=== PATIENT | male | born 1940 | race Caucasian/White ===

== ENCOUNTER 2023-04-22 10:12 | Outpatient (CLI) | payer BC ==
[~2023-04-22 10:12] MED LIST: ATOR10TA87 PO; QUIN10TA PO
[2023-04-22 10:50] VITALS: PULSE 74; RESP 16; O2SAT 91
== END 2023-04-22 23:59 | disposition home or self-care (01) ==
LOC: RT 10:12
PROVIDERS: ATTEND Family Medicine
DX: R94.2 Abnormal results of pulmonary function studies (principal); R06.00 Dyspnea, unspecified; Z87.891 Personal history of nicotine dependence
CPT/HCPCS: 94060; 94760

== ENCOUNTER 2024-04-24 11:12 | Day surgery (SDC) | payer BC ==
[2024-04-20 11:17] LABS: BASOPHILS % (AUTO) 0.5 % (0-1); EOSINOPHILS # (AUTO) 0.2 X10'3 (0-0.9); EOSINOPHILS % (AUTO) 2.5 % (0-6); HEMATOCRIT 46.9 % (42.0-52.0); HEMOGLOBIN 15.8 g/dl (14.0-17.9); LYMPHOCYTES # (AUTO) 1.9 X10'3 (1.1-4.8); LYMPHOCYTES % (AUTO) 27.1 % (21-51); MEAN CORPUSCULAR HEMOGLOBIN 30.5 PG (27.0-31.0); MEAN CORPUSCULAR HGB CONC 33.7 g/dL (33.0-36.5); MEAN CORPUSCULAR VOLUME 90.6 FL (78-98); MEAN PLATELET VOLUME 8.4 FL (7.4-10.4); MONOCYTES # (AUTO) 0.8 X10'3 (0-0.9); MONOCYTES % (AUTO) 10.6 % (2-12); NEUTROPHILS # (AUTO) 4.2 X10'3 (1.8-7.7); NEUTROPHILS % (AUTO) 59.3 % (42-75); PLATELET COUNT 192 X10'3 (140-440); RED BLOOD COUNT 5.18 X10'6 (4.70-6.10); RED CELL DISTRIBUTION WIDTH 13.5 % (11.5-14.5); WHITE BLOOD COUNT 7.1 X10'3 (4.5-11.0)
[2024-04-20 11:18] LABS: APTT 34 SECONDS (22-32); INR 1.1 INR; PROTHROMBIN TIME 11.6 SECONDS (9.0-12.0)
[2024-04-20 11:27] LABS: ALBUMIN 3.5 G/DL (3.4-5.0); ANION GAP 10 (8-16); BLOOD UREA NITROGEN 17 MG/DL (7-18); BUN/CREATININE RATIO 16.8 (10.0-20.0); CALCIUM 9.3 MG/DL (8.5-10.1); CHLORIDE 106 MMOL/L (99-107); CHOL/HDL RATIO 2.8 (0.00-4.99); CHOLESTEROL 145 MG/DL (0-200); CREATININE 1.01 MG/DL (0.60-1.10); GLUCOSE 113 MG/DL (70-104); HDL CHOLESTEROL 51 MG/DL (35-60); LDL CHOLESTEROL 79 MG/DL (50-100); POTASSIUM 4.2 MMOL/L (3.5-5.1); SODIUM 141 MMOL/L (135-145); TOTAL CARBON DIOXIDE 24.7 MMOL/L (24-32); TRIGLYCERIDES 75 MG/DL (20-135); eGFR 70 ML/MIN
[2024-04-24] VITALS (9 sets, daily range): BP systolic 108–133; BP diastolic 53–87; PULSE 51–72; RESP 12–19; TEMP 97.8; O2SAT 92–98
[~2024-04-24] VITALS: Ht 175.3 cm; Wt 94.5 kg
[2024-04-24] MEDS ORDERED: diphenhydrAMINE 25mg capsule PO PRN (11:35)
[2024-04-24] MEDS ORDERED: normal saline 1,000 ML IV SCH (11:35)
[2024-04-24] MEDS ORDERED: LORazepam 0.5 MG tablet PO PRN (11:35)
[2024-04-24] MEDS ORDERED: APIX5TAB3 PO (12:02)
[2024-04-24] MEDS ORDERED: AMLO5TAB16 PO (12:02)
[2024-04-24] MEDS ORDERED: SOTA80TA73 PO (12:02)
[2024-04-24] MEDS ORDERED: midazolam 1 mg/ML 2ml injection ONE (12:47)
[2024-04-24] MEDS ORDERED: verapamil 2.5 mg/ml inj IV ONE (12:47)
[2024-04-24] MEDS ORDERED: iohexol 350MG/ML 100ml bottle IV ONE (12:47)
[2024-04-24] MEDS ORDERED: fentaNYL/PF 50MCG/1 ML 2ML syringe ONE (12:47)
[2024-04-24] MEDS ORDERED: heparin 1,000unit/ml 10ml vial 10 ML ONE (12:47)
[2024-04-24] MEDS ORDERED: nitroGLYCERIN 500mcg/5mL D5W 5 ML IV ONE (12:48)
[2024-04-24] MEDS ORDERED: LIDOcaine 1% (10mg/ml) 2ml vial ONE (13:24)
[2024-04-24] MEDS ORDERED: LIDOcaine 1% 30ml preserv. free vial ONE (13:35)
[2024-04-24] MEDS ORDERED: ondansetron/PF 4mg/2ml inj IV PRN (14:20)
[2024-04-24] MEDS ORDERED: HYDROcodone/acetaminophen 10/325mg tab PO PRN (14:20)
[2024-04-24] MEDS ORDERED: OXAZEpam 15mg capsule PO PRN (14:20)
[2024-04-24] MEDS ORDERED: proCHLORperazine 10 MG/2 ml inj IV PRN (14:20)
[2024-04-24] MEDS ORDERED: HYDROcodone/acetaminophen 5mg/325mg tablet PO PRN (14:20)
== END 2024-04-24 16:50 | disposition home or self-care (01) ==
LOC: SSTAY O 11:12
PROVIDERS: ATTEND Internal Medicine Interventional Cardiology
DX: R94.39 Abnormal result of other cardiovascular function study (principal); I25.118 Atherosclerotic heart disease of native coronary artery with other forms of angina pectoris; I48.91 Unspecified atrial fibrillation; I10 Essential (primary) hypertension; Z79.899 Other long term (current) drug therapy; Z79.01 Long term (current) use of anticoagulants; Z88.7 Allergy status to serum and vaccine
CPT/HCPCS: 36415; 80048; 80061; 85025; 85610; 85730; 93005; 93458; 99152; 99153; J1644; J2003; J2250; J3010; J3490; J7030; Q9967; A6258; A6402; C1769; C1894